=== PATIENT | male | born 1940 | race African-American/Black ===

== ENCOUNTER 2017-05-23 07:45 | Outpatient (CLI) | payer MEDICARE, MEDICAID ==
[2017-05-23 08:46] LABS: Anion Gap 12 mmol/L (10-20); BUN (Urea Nitrogen) 14 mg/dL (8.4-25.7); Calc. Creatinine Clearance 0 mL/min (70-130); Calcium 9.5 mg/dL (7.8-10.44); Carbon Dioxide 27 mmol/L (23-31); Chloride 104 mmol/L (98-107); Estimated GFR-MDRD Greater than 90
--- NOTE | 2017-05-23 10:04 | CT ---
CT ABDOMEN AND PELVIS NONCONTRAST: HISTORY: Microscopic hematuria. COMPARISON: 06/07/16. FINDINGS: Each renal collecting system and ureter and the urinary bladder are incompletely distended without s tone apparent. Lack of contrast limits evaluation for other abnormalities. Urinary bladder wall remains somewhat t hickened. Prostate gland protrudes into the bladder base. Lack of contrast limits evaluation for other abnormalities. Calcified granulomata within the liver are consistent with healed granulomatous disease. Prominent degenerative changes involve the lumbar spine. There is calcification of the arterial structures. IMPRESSION: 1. No CT evidence of urinary tract obstruction or calcification. 2. Prostate gland remains enlarged. 3. Prominent degenerative changes of the lumbar spine. POS: EDIE
== END 2017-05-23 07:46 | disposition home or self-care (01) ==
LOC: CT 07:45
PROVIDERS: ATTEND Urology
DX: N40.0 Benign prostatic hyperplasia without lower urinary tract symptoms (principal); R31.29 Other microscopic hematuria; N32.3 Diverticulum of bladder; N21.0 Calculus in bladder; M47.816 Spondylosis without myelopathy or radiculopathy, lumbar region
CPT/HCPCS: 36415; 74176; 80048; 88112

== ENCOUNTER 2017-12-16 06:59 | Outpatient (CLI) | payer MEDICARE, MEDICAID ==
--- NOTE | 2017-12-16 08:53 | ULT ---
ULTRASOUND RETROPERITONEUM COMPLETE: (RENAL) Date: 12/16/17 HISTORY: N40.0, BPH (benign prostatic hyperplasia) without LUTS. R33.9, urinary retention. 77-year-old male. FINDINGS: Right kidney is 10.5 x 6.0 x 5.5 cm. Left kidney is 11.0 x 6.0 x 5.5 cm. Left kidney is partially obscured by shadowing from bowel gas. There is a dilated right extrarenal pe lvis, but little or no actual hydronephrosis of the right kidney. There is no hydronephrosis of left kidney. Pre-void urinary bladder volume is approximately 310 mL. Post-void residual is 75 mL. Urinary bladder claire are mildly thickened to approximately 4 mm. Enlarged prostate gland lobulated s uperior process protrudes into the bladder base. IMPRESSION: 1. No overt hydronephrosis. 2. Enlarged prostate. 3. Signs of chronic bladder outlet obstruction. HENRY Schwarz POS: [place]
== END 2017-12-16 07:00 | disposition home or self-care (01) ==
LOC: ULT 06:59
PROVIDERS: ATTEND Urology
DX: N40.0 Benign prostatic hyperplasia without lower urinary tract symptoms (principal); R33.9 Retention of urine, unspecified
CPT/HCPCS: 76770

== ENCOUNTER 2018-06-19 06:35 | Outpatient (CLI) | payer MEDICARE, MEDICAID ==
--- NOTE | 2018-06-19 09:27 | ULT ---
RENAL ULTRASOUND: Comparison: 12-16-17 History: BPH. Technique: Multiplanar grayscale and color doppler images were obtained in a renal ultrasound. FINDINGS: The kidneys are normal in echogencity without hydronephrosis or calculi and measure 9.5 and 10.5 cm i n length on the right and left, respectively. The prostate is enlarged. No focal abnormality of the urinary bladder is seen. IMPRESSION: 1. No significant renal abnormality. 2. Enlarged prostate. POS: [place]
== END 2018-06-19 06:36 | disposition home or self-care (01) ==
LOC: BICULT 06:35
PROVIDERS: ATTEND Urology
DX: N40.1 Benign prostatic hyperplasia with lower urinary tract symptoms (principal); R33.9 Retention of urine, unspecified; Q63.8 Other specified congenital malformations of kidney
CPT/HCPCS: 76770